=== PATIENT | female | born 1950 | race Caucasian/White ===

== ENCOUNTER → 2016-09-02 | Outpatient (CLI) | payer OTHER | LOC: CIMAGING 13:07 | PROVIDERS: ATTEND Internal Medicine | DX: N64.4 Mastodynia (principal) | CPT/HCPCS: G0204 ==

== ENCOUNTER → 2016-09-14 | Outpatient (CLI) | payer OTHER | LOC: CIMAGING 13:43 | DX: N64.4 Mastodynia (principal) | CPT/HCPCS: 76641-PO ==

== ENCOUNTER 2017-10-30 11:00 | Emergency (ER) | payer OTHER ==
[2017-10-30] MEDS ORDERED: IBUPROFEN 600 MG TAB PO ONE (11:16)
--- NOTE | 2017-10-30 11:30 | EDPHY ---
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 Patient was taking a tray off of a rock when it slipped and struck her on the right palm, with majority impacted the right 2nd MCP. Initially felt like the area was bruised but has now noticed swelling on the dorsal aspect of the hand with significant discomfort with flexion at the MCP joint. She is unable to knit. 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 No open wounds. REVIEW OF SYSTEMS: Aside from elements discussed in the HPI, a comprehensive 10-point review of systems was reviewed and is negative. PAST MEDICAL HISTORY: Arthritis. SOCIAL HISTORY: Employed at [employer]. GENERAL APPEARANCE: Well-developed, well-nourished, pleasant. FOCUSED EXAM OF right hand: Swelling is present on the dorsum of the hand over the 2nd MCP. Faint bruising is noted on the palmar aspect at the head of the 2nd metacarpal. Discomfort with active flexion at the MCP. No open wounds. Sensation intact. Two-point sensation intact. Neurovascular exam: Good capillary refill, normal neurologic exam. Smoking Status: Never smoked Constitutional: Initial Vital Signs Temperature (C) 36.5 C 10/30/17 11:04 Heart Rate 73 10/30/17 11:04 Respiratory Rate 18 10/30/17 11:04 Blood Pressure 205/122 H 10/30/17 11:04 O2 Sat (%) 97 10/30/17 11:04 O2 Delivery Mode Room Air Allergies/Adverse Reactions: No Known Allergies Allergy (Verified 10/30/17 11:03) Home Medications: Medication Instructions Recorded Pantoprazole Sodium [Protonix 40mg 40 mg PO BID 06/30/11 (*)] Sucralfate 1 gm PO AC PRN 06/30/11 Brimonidine/Timolol [Combigan (RX)] 02/06/15 MDM/Departure - MDM Imaging Results: Imaging Impressions Hand X-Ray 10/30/17 11:08 Impression: No evidence for acute fracture. Chronic findings, as above. Medications Given: Discontinued Medications Ibuprofen (Motrin) 600 mg PO EDNOW ONE Stop: 10/30/17 11:17 Last Admin: 10/30/17 11:25 Dose: 600 mg ED Course/Re-evaluation: X-ray was obtained of the right hand. On my interpretation there is a very small calcified alexandru near the head of the 2nd metacarpal with possible donor site visualized. Will provide aluminum finger splint for comfort. Patient will follow up with workman's compensation tomorrow to be cleared if possible to return to work. She is also given information regarding ice, rest, elevation, and nonsteroidals for pain and inflammation. Differential Diagnosis: Differential diagnosis for the patient's injury was considered including but not limited to contusion, abrasion, laceration, fracture, open fracture, or dislocation. - Depart Disposition: Home, Routine, Self-Care Clinical Impression: Right 2nd MCP injury Condition: Good Instructions: Finger Sprain (ED) Additional Instructions: Mainstay of therapy is rest, ice, immobilization, elevation, and nonsteroidal anti-inflammatories for pain and to decrease swelling. Please wear the finger splint for the next 24-36 hr. Apply ice for 20-30 minutes every 2-3 hours for the next 48 hours. I recommend Ibuprofen (Motrin, Advil) or Naproxen Sodium (Aleve) for pain and anti-inflammatory effects. You may take either one, but do not take both. Your dose is: Ibuprofen 600 mg every 6-8 hours with food. OR Naproxen Sodium (Aleve) 220 mg every 12 hours. Followup with your workmen's compensation physician as directed. You should be seen within the next 2-3 days to be sure you are improving. Stand Alone Forms: Work Comp Follow Up, Work Excuse Referrals: Miley Denis MD [Primary Care Provider] - As per Instructions
[2017-10-30 12:01] VITALS: BP 184/108
== END 2017-10-30 12:04 | disposition home or self-care (01) ==
LOC: CED 11:00
DX: S69.91XA Unspecified injury of right wrist, hand and finger(s), initial encounter (principal); W22.8XXA Striking against or struck by other objects, initial encounter; Y92.239 Unspecified place in hospital as the place of occurrence of the external cause; Y99.0 Civilian activity done for income or pay; Y93.89 Activity, other specified
CPT/HCPCS: 73130-PO; L3925

== ENCOUNTER 2018-07-12 10:25 | Emergency (ER) | payer OTHER ==
[2018-07-12 10:33] VITALS: BP 164/90
--- NOTE | 2018-07-12 10:42 | EDPHY ---
H & P Smoking Status: Never smoked Time Seen by Provider: 07/12/18 10:33 HPI/ROS: CHIEF COMPLAINT: Left shoulder pain HISTORY OF PRESENT ILLNESS: 68-year-old female with no prior history of left shoulder injury works at [employer] , was pushing a cart last evening she felt immediate pain in her left anterolateral shoulder. Pain is reproducible with range of motion and palpation. No direct trauma fall. She does have range of motion albeit with pain. Is no paresthesia. PHYSICAL EXAM (Prior to examination, patient consented to physical exam, hands were washed and my usual and customary physical exam procedures followed) 1) GENERAL: Well-developed, well-nourished, alert and oriented. Appears to be in no acute distress. 2) HEAD: Normocephalic 3) HEENT: Pupils equal, round, reactive to light bilaterally. 4) LUNGS: Breathing comfortably. 5) MUSCULOSKELETAL: Normal anatomic landmarks to the left shoulder. No step- off. No deformity no. No axillary nerve dysfunction. Tender to palpation left anterolateral aspect of the shoulder. Soft compartments. Normal coloration. 6) SKIN: Intact 7) VASCULAR: pulses and cap refill present are brisk 8) NEUROLOGIC: Radial, ulnar, median nerve function intact with no deficits appreciated on exam DIFFERENTIAL DIAGNOSIS: in no particular order including but not limited to fracture, sprain, compartment syndrome Procedure: Splint A upper extremity sling splint was applied by ER roving technician. After application of the splint I returned and re-examined the patient. The splint was adequately immobilizing the joint and distal to the splint the patient's circulation and sensation were intact. Patient shows no signs of compartment syndrome. Was given orthopedic precautions. (Fallon De Guzman) Constitutional: Initial Vital Signs Temperature (C) 36.5 C 07/12/18 10:29 Heart Rate 78 07/12/18 10:29 Respiratory Rate 16 07/12/18 10:29 Blood Pressure 164/90 H 07/12/18 10:29 O2 Sat (%) 97 07/12/18 10:29 O2 Delivery Mode Room Air Allergies/Adverse Reactions: No Known Allergies Allergy (Verified 10/30/17 11:03) Home Medications: Medication Instructions Recorded Pantoprazole Sodium [Protonix 40mg 40 mg PO BID 06/30/11 (*)] Sucralfate 1 gm PO AC PRN 06/30/11 MDM/Departure - MDM Imaging Results: Imaging Impressions Shoulder X-Ray 07/12/18 10:33 Impression: No acute findings in the shoulder. Imaging Impressions Shoulder X-Ray 07/12/18 10:33 Impression: No acute findings in the shoulder. Images reviewed myself (Fallon De Guzman) ED Course/Re-evaluation: I did not see this patient while she was in the emergency department. However her care was discussed with the PA while the patient was in the department. I agree with treatment plan and management (Jasmeet Hernandez) 11:09 a.m.: Re-evaluation discussed her x-ray. Discussed limitations of x-ray , notably that non osseous injury not ruled out. Recommended follow-up with orthopedics and worker's comp is is a work comp related injury. Offered sling which he declines. Off work note which he declines. Recommend she avoid movements that elicit pain. Tylenol Motrin for discomfort. Usual and customary orthopedic precautions instructions provided. Care of patient under supervision of secondary supervising physician Dr Hernandez . (Fallon De Guzman) - Depart Disposition: Home, Routine, Self-Care Clinical Impression: Left shoulder strain Qualifiers: Encounter type: initial encounter Qualified Code(s): S46.912A - Strain of unspecified muscle, fascia and tendon at shoulder and upper arm level, left arm , initial encounter Condition: Good Instructions: Rotator Cuff Injury (ED) Additional Instructions: Return to the ER immediately if you experience discoloration, have worsening pain, numbness, tingling, or any other symptoms that concern you. If you received x-rays in the emergency department today, be advised, that ligamentous , tendon, muscular, and other non-bony injury cannot be fully ruled out. Try to keep your affected extremity elevated above the level of your chest, and keep cold packs on the affected area, for the next 48 hours. Stand Alone Forms: Work Comp Follow Up, Work Excuse Referrals: Ayo Gutierres MD [Medical Doctor] - 2-3 days, call for appt.
== END 2018-07-12 11:17 | disposition home or self-care (01) ==
DX: S46.912A Strain of unspecified muscle, fascia and tendon at shoulder and upper arm level, left arm, initial encounter (principal); X50.9XXA Other and unspecified overexertion or strenuous movements or postures, initial encounter; Y99.0 Civilian activity done for income or pay; Y93.89 Activity, other specified; Y92.9 Unspecified place or not applicable

== ENCOUNTER 2018-08-29 09:24 | Emergency (ER) | payer OTHER ==
[2018-08-29] MEDS ORDERED: HYDROmorphONE/DILAUDID 2 MG/ML INJ IVP ONE (09:40)
[2018-08-29] MEDS ORDERED: ONDANSETRON 4 MG/2 ML VIAL IVP ONE (09:40)
[2018-08-29] MEDS ORDERED: NS 1,000 ML IV ONE (09:40)
--- NOTE | 2018-08-29 09:51 | EDPHY ---
H & P Time Seen by Provider: 08/29/18 09:34 HPI/ROS: HPI Nausea, diarrhea, abdominal cramping. 68-year-old female by private vehicle. This patient reports that yesterday morning at 6:00 a.m. at work she developed sensation of mid and upper abdominal cramping, this was followed by watery diarrhea. She has had multiple episodes of profuse watery diarrhea up until 3:00 a.m. this morning. Her diarrhea has since resolved. She is complaining of nausea and continued right upper quadrant cramping and discomfort. Last food intake was yesterday afternoon. She reports that she has been feeling lightheaded especially when standing upright from the sitting position. ROS: Constitutional: No fever, no chills. As above. Eyes: No discharge. No changes in vision. ENT: No sore throat. No nasal congestion or rhinorrhea. Respiratory: No cough. No shortness of breath. Cardiac: No chest pain, no palpitations. Gastrointestinal: As above. Genitourinary: No hematuria. No dysuria or increased frequency with urination. Musculoskeletal: No back pain. No neck pain. No myalgias or arthralgias. Skin: No rashes. Neurological: No headache. No focal weakness or altered sensation. Past medical history: Arthritis. Cholecystectomy. She did have a complex abdominal surgery by Dr. Dave Angela about 6 years ago secondary to a problem with her duodenum and obstruction. Social history: Here with family members. She is numb fully at the hospital. Physical Exam: General Appearance: Alert, she does not appear in distress. This patient is responding to questions appropriately and in full sentences. This patient appears well-hydrated and well-nourished. Eyes: Pupils equal and round no pallor or injection. No lid edema, erythema or injection. Respiratory: There are no retractions, lungs are clear to auscultation with good air movement bilaterally. Cardiovascular: Regular rate and rhythm. No murmur. Gastrointestinal: Abdomen is soft with mid and right upper quadrant tenderness on palpation which is mild to moderate in nature, no masses, bowel sounds normal. No focal tenderness at McBurney's point. No Milton sign. Neurological: Motor sensory function is grossly intact. Cranial nerves are normal. Gait is normal. Skin: Warm and dry, no rashes. Musculoskeletal: Neck is supple and nontender. Extremities are symmetrical. All joints range without pain or impingement. Psychiatric: No agitation. No depression. Database: EKG: EKG time is 9:50 a.m.; EKG shows a narrow complex normal sinus rhythm with a ventricular rate of 82. The MS, QRS, QT intervals are within normal limits. There are no ST-T wave changes indicative of ischemic or injury pattern. No evidence of right heart strain. Interpreted by me. Imaging: CT abdomen and pelvis with IV contrast: No acute pathology. No evidence of obstruction or other significant pathology. Results were discussed with staff radiologist Dr. Santo. Procedures: Emergency department course: Triage vital signs reviewed. She is moderately hypertensive. Vital signs are otherwise normal. She is afebrile. IV was placed. She was started on IV normal saline with 1-2 L to be given over the next 1-2 hours. She declines pain medication. She will initially be given 20 mg of IV Pepcid and 4 mg of IV Zofran. 10:40 a.m., the patient was re-evaluated, laying flat she is resting comfortably. She still states that she feels lightheaded when she sits forward. She describes this as a mild faint feeling. She denies vertigo. Repeat abdominal exam she is soft, nontender nondistended. 11:20 a.m., the patient was re-evaluated, she is resting comfortably. Her vital signs have remained normal. She has been afebrile. She has not had any vomiting. Results of her CT scan and blood work were reviewed with her thoroughly. Repeat abdominal exam she is soft, nontender nondistended. She feels comfortable going home at this time and I feel she is safe for discharge. Repeat neurologic Assessment is nonfocal. She is up and ambulatory with a normal gait and without difficulty. She will have family take her home. I will prescribe Zofran for nausea. Her presentation is consistent with a food- borne illness or viral gastroenteritis. Follow-up and return to emergency department precautions have been reviewed with her. All of her questions were answered. She was discharged from the emergency department in good condition with family. Differential Diagnosis: The differential diagnosis on this patient includes but is not limited to food borne illness, gastroenteritis. Bowel obstruction, cholecystitis, pancreatitis , other surgical etiology unlikely. This represents a partial list of diagnoses considered. These considerations are based on history, physical exam , past history, reassessment and diagnostic testing. Smoking Status: Never smoked Constitutional: Initial Vital Signs Temperature (C) 36.1 C 08/29/18 09:33 Heart Rate 83 08/29/18 09:33 Respiratory Rate 20 08/29/18 09:33 Blood Pressure 152/82 H 08/29/18 09:33 O2 Sat (%) 97 08/29/18 09:33 O2 Delivery Mode Room Air Allergies/Adverse Reactions: No Known Allergies Allergy (Verified 10/30/17 11:03) Home Medications: Medication Instructions Recorded Pantoprazole Sodium [Protonix 40mg 40 mg PO BID 06/30/11 (*)] Sucralfate 1 gm PO AC PRN 06/30/11 Combingin Eye Drops 08/29/18 Ondansetron Odt [Zofran Odt 4 mg 4 mg PO Q4PRN PRN #10 tab 08/29/18 (*)] Medical Decision Making - Diagnostics Imaging Results: Imaging Impressions Abdomen CT 08/29/18 09:59 Impression: 1. No acute intra-abdominal process. 2. Extra and intrahepatic ductal dilatation, similar to prior and likely related to patient's postcholecystectomy changes. If liver function tests are abnormal, might consider MRCP or ERCP. 3. Mild bilateral sacroiliitis. Findings and recommendations discussed with Katherin Dash MD at 1039 hour, 08/29/2018. - Data Points Laboratory Results: 08/29/18 09:42 POC Sodium 139 mEq/L mEq/L (135-145) POC Potassium 3.3 mEq/L mEq/L (3.3-5.0) POC Chloride 105.0 mEq/L mEq/L (97-110) POC Total CO2 22 mEq/L mEq/L (22-31) POC BUN 23 mg/dL mg/dL (7-23) POC Creatinine 1.0 mg/dL mg/dL (0.6-1.0) POC Glucose 108 mg/dL H mg/dL (70-100) POC Calcium 9.7 mg/dL mg/dL (8.5-10.4) POC Total Bilirubin 0.7 mg/dL mg/dL (0.1-1.4) POC AST 20 IU/L IU/L (14-46) POC ALT 23 IU/L IU/L (9-52) POC Alk Phosphatase 83 IU/L IU/L (38-126) POC Total Protein 7.0 g/dL g/dL (6.3-8.2) POC Albumin 3.8 g/dL g/dL (3.5-5.0) Medications Given: Discontinued Medications Hydromorphone HCl (Dilaudid) 0.5 mg IVP EDNOW ONE Stop: 08/29/18 09:41 Last Admin: 08/29/18 11:30 Dose: Not Given Sodium Chloride (Ns) 1,000 mls @ 0 mls/hr IV EDNOW ONE; Wide Open PRN Reason: Protocol Stop: 08/29/18 09:41 Last Admin: 08/29/18 10:04 Dose: 1,000 mls Famotidine 20 mg/ Sodium (Chloride) 102 mls @ 408 mls/hr IV EDNOW ONE Stop: 08/29/18 10:06 Last Admin: 08/29/18 10:04 Dose: 102 mls Ondansetron HCl (Zofran) 4 mg IVP EDNOW ONE Stop: 08/29/18 09:41 Last Admin: 08/29/18 10:04 Dose: 4 mg Point of Care Test Results: CBC CBC Collection Date 08/29/18 CBC Collection Time 09:34 WBC 6.18 RBC 5.41 HGB 15.9 HCT 47.8 PLT 195 Neut # 4.58 Neut 74.1 LYMPH # 0.92 LYMPH 14.9 MCV 88.4 Chemistry 08/29/18 09:42 POC Sodium 139 mEq/L mEq/L (135-145) POC Potassium 3.3 mEq/L mEq/L (3.3-5.0) POC Chloride 105.0 mEq/L mEq/L (97-110) POC Total CO2 22 mEq/L mEq/L (22-31) POC BUN 23 mg/dL mg/dL (7-23) POC Creatinine 1.0 mg/dL mg/dL (0.6-1.0) POC Glucose 108 mg/dL H mg/dL (70-100) POC Calcium 9.7 mg/dL mg/dL (8.5-10.4) POC Total Bilirubin 0.7 mg/dL mg/dL (0.1-1.4) POC AST 20 IU/L IU/L (14-46) POC ALT 23 IU/L IU/L (9-52) POC Alk Phosphatase 83 IU/L IU/L (38-126) POC Total Protein 7.0 g/dL g/dL (6.3-8.2) POC Albumin 3.8 g/dL g/dL (3.5-5.0) Comprehensive Metabolic Panel CMP Collection Date 08/29/18 CMP Collection Time 09:34 Departure - Departure Disposition: Home, Routine, Self-Care Clinical Impression: Diarrhea, Abdominal pain Condition: Good Instructions: Gastroenteritis (ED) Additional Instructions: Read and follow provided instructions. Follow-up with your primary care physician in 1-2 days for re-evaluation. Take medication as prescribed for nausea. Return to the emergency department for worsening symptoms, worsening abdominal pain, vomiting and inability to keep fluids down despite medications, bloody stool, fainting, worsening lightheadedness or other serious concerns. Referrals: Miley Denis MD [Primary Care Provider] - As per Instructions Stand Alone Forms: Work Excuse Prescriptions: Ondansetron Odt [Zofran Odt 4 mg (*)] 4 mg PO Q4PRN PRN #10 tab PRN Reason: For Nausea & Vomiting
[2018-08-29] MEDS ORDERED: FAMOTIDINE 20 MG in NS 100 ML IV ONE (09:52)
[2018-08-29] MEDS ORDERED: IOPAMIDOL (ISOVUE-300) 100 ML BTL ONE (10:06)
[2018-08-29 11:50] VITALS: BP 154/78
== END 2018-08-29 11:44 | disposition home or self-care (01) ==
LOC: CED 09:24
DX: K52.9 Noninfective gastroenteritis and colitis, unspecified (principal); E86.9 Volume depletion, unspecified
CPT/HCPCS: 74177-PO; 80053-ER; 85025-QW-ER; 96361-ER; 96374-ER; 96375-ER; 99285-ER; J2405; Q9967